=== PATIENT | male | born 1985 | race Two or more races ===

== ENCOUNTER 2025-04-17 16:26 | Emergency (ER) | payer OTHER ==
[~2025-04-17] VITALS: Ht 175.3 cm; Wt 94.3 kg
--- NOTE | 2025-04-17 17:07 | ED.PDOC ---
SOB-HPI HPI Comments 39 y.o male with PMHx of asthma, DM, and PE, presents to the ED for a chief complaint of SOB x 9 days associated with new onset of chest tightness. Patient was seen 4 days ago at [facility] care, where he was diagnosed with bronchitis and possible PNA, and prescribed a course of antibiotics and steroids. Patient has completed the 5 day course of steroids but is still taking the antibiotics in which he has 5 days remaining. While patient uses his albuterol inhaler and has mild relief, he is now using daily rather than PRN, still without relief, and is now experiencing tachycardia and palpitations. Last albuterol use was one hour prior to ED which he presents with HR around 106. Patient denies any fever, chills, nausea, vomiting, or sweats, and upon arrival, his oxygen saturation was 96% on room air. Chief Complaint: Shortness of Breath Time Seen by MD: 16:43 Reviewed notes: Nurses Notes, Medications, Allergies Information Source: Patient Mode of Arrival: Ambulatory Severity: Moderate Timing: Days (9), Weeks Duration: Since onset Context: At Rest PE Risk Factors: None History of: Asthma, DVT/PE Modifying Factors: Nothing Associated Signs and Symptoms: Calf Pain Quality: Tightness Radiation: No Radiation Location: Substernal Past Medical History PAST MEDICAL HISTORY: Asthma, DM, PE Surgical History: Cholecystectomy Family History Family History: Reviewed,noncontributory to illness Social History Smoker: Non-Smoker Alcohol: Denies ETOH Use Drugs: Denies Drug Use Lives In: Home Constitutional: denies: chills, diaphoresis, fatigue, fever, malaise, sweats, weakness, others EENTM: denies: blurred vision, double vision, ear bleeding, ear discharge, ear drainage, ear pain, ear ringing, eye pain, eye redness, hearing loss, mouth pain, mouth swelling, nasal discharge, nose bleeding, nose congestion, nose pain, photophobia, tearing, throat pain, throat swelling, voice changes, others Respiratory: reports: SOB at rest, shortness of breath, SOB with excertion; denies: cough, hemoptysis, orthopnea, stridor, wheezing, others Cardiovascular: reports: chest pain; denies: dizzy spells, diaphoresis, Dyspnea on exertion, edema, irregular heart beat, left arm pain, lightheadedness, palpitations, PND, syncope, others Gastrointestinal: denies: abdomen distended, abdominal pain, blood streaked bowels, constipated, diarrhea, dysphagia, difficulty swallowing, hematemesis, melena, nausea, poor appetite, poor fluid intake, rectal bleeding, rectal pain, vomiting, others Genitourinary: denies: burning, dysuria, flank pain, frequency, hematuria, incontinence, penile discharge, penile sore, pain, testicle pain, testicle swelling, urgency, others Neurological: denies: dizziness, fainting, headache, left sided numbness, left sided weakness, numbness, paresthesia, pre-existing deficit, right sided numbness, right sided weakness, seizure, speech problems, tingling, tremors, wea kness, others Musculoskeletal: denies: back pain, gout, joint pain, joint swelling, muscle pain, muscle stiffness, neck pain, others Integumetry: denies: bruises, change in color, change in hair/nails, dryness, l aceration, lesions, lumps, rash, wounds, others Allergic/Immunocompromised: denies: Difficulty Healing, Frequent Infections, Hives, Itching, others Hematologic/Lymphatic: denies: anemia, blood clots, easy bleeding, easy bruising, swollen glands, others Endocrine: denies: excessive hunger, excessive sweating, excessive thirst, excessive urination, flushing, intolerance to cold, intolerance to heat, unexplained weight gain, unexplained weight loss, others Psychiatric: denies: anxiety, bipolar disorder, depression, hopeless, panic disorder, schizophrenia, sleepless, suicidal, others All Other Systems: Reviewed and Negative Physical Exam General Appearance: No Apparent Distress HEENT: Other (Pupils and face symmetric. Moist mucous membranes.) Neck: Full Range of Motion, Normal Inspection Respiratory: Decreased Breath Sounds, No Accessory Muscle Use, Respiratory Distress (Mild tachypnea) Cardiovascular: No Edema, No JVD, Tachycardia Breast Exam: Deferred Gastrointestinal: Non Tender, Soft Genitalia: Deferred Pelvic: Deferred Rectal: Deferred Extremities: No calf tenderness, Normal inspection, Normal range of motion, Non-tender, No pedal edema Neurologic: Alert (Oriented x4), Normal Affect, Normal Mood, Other (Ambulatory) Cerebellar Function: NOT DONE Reflexes: NOT DONE Skin: Dry, Normal Color, Warm Lymphatic: NOT DONE EKG EKG : Comments Sinus tach, rate 108, normal intervals, normal axis, normal QRS, nonspecific T change Was a procedure done? Was a procedure done?: No Differential Dx Differential Diagnosis: Anxiety, Asthma, Bronchitis, CHF, COPD, Dysrhythmia, Hyperventilation, Myocardial infarction, Panic Attack, Pneumonia, Pulmonary Embolism, Respiratory Distress, URI X-Ray, Labs, Meds, VS Vital Signs Date Time Temp Pulse Resp B/P (MAP) Pulse Ox O2 Delivery O2 Flow Rate FiO2 04/17/25 18:40 66 19 95 Room Air* 0 21 04/17/25 18:40 98.2 66 19 144/84 (104) 95 98.2 04/17/25 16:42 108 04/17/25 16:29 98.6 117 20 151/94 96 98.6 Lab Test 04/17/25 19:02 04/17/25 18:45 04/17/25 18:18 04/17/25 18:00 Range/Units Lactic Acid Level 2.6 *H 0.4-2.0 mmol/L Urine Color Yellow Yellow Urine Clarity Clear Clear Urine pH 6.0 5.0-9.0 Urine Specific [place] 1.037 H 1.001-1.035 Urine Protein Negative Negative Urine Ketones 1+ H Negative Urine Blood 1+ H Negative /uL Urine Nitrite Negative Negative Urine Bilirubin Negative Negative Urine Urobilinogen Normal Negative mg/dL Urine Leukocyte Esterase Negative Negative /uL Urine RBC 18 0 - 3 /hpf Urine Microscopic WBC 1 0-3 /HPF Urine Squamous Epithelial Cells Few <5 /hpf Urine Bacteria None seen None Seen /hpf Urine Mucus Few None Seen Urine Glucose 4+ H Normal mg/dL Troponin I High Sensitivity 4 </=54 ng/L Influenza Type A Antigen Negative Negative Influenza Type B Antigen Negative Negative SARS-CoV-2 Antigen (Rapid) Negative NEGATIVE Test 04/17/25 17:04 04/17/25 16:49 Range/Units White Blood Count 10.5 4.4-10.8 10^3/uL Red Blood Count 5.90 4.5-5.90 10^6/uL Hemoglobin 18.7 H 13.5-17.5 g/dL Hematocrit 54.8 H 41.0-53.0 % Mean Corpuscular Volume 92.9 80.0-100.0 fL Mean Corpuscular Hemoglobin 31.8 28.0-32.0 pg Mean Corpuscular Hemoglobin Concent 34.2 32.0-36.0 g/dL Red Cell Distribution Width 13.6 11.8-14.3 % Platelet Count 346 140-450 10^3/uL Mean Platelet Volume 8.1 6.9-10.8 fL Neutrophils (%) (Auto) 83.6 H 37.0-80.0 % Lymphocytes (%) (Auto) 8.9 L 10.0-50.0 % Monocytes (%) (Auto) 7.3 0.0-12.0 % Eosinophils (%) (Auto) 0.1 0.0-7.0 % Basophils (%) (Auto) 0.1 0.0-2.0 % Neutrophils # (Auto) 8.8 H 1.6-8.6 10 ^3/uL Lymphocytes # (Auto) 0.9 0.4-5.4 10 ^3/uL Monocytes # (Auto) 0.8 0-1.3 10 ^3/uL Eosinophils # (Auto) 0 0-0.8 10 ^3/uL Basophils # (Auto) 0 0-0.2 10 ^3/uL Nucleated Red Blood Cells 0.3 % D-Dimer, Quantitative < 0.19 0.0-0.49 mg/L FEU Sodium Level 137 136-145 mmol/L Potassium Level 4.2 3.5-5.1 mmol/L Chloride Level 102 98-107 mmol/L Carbon Dioxide Level 24 20-31 mmol/L Anion Gap 11 5-15 Blood Urea Nitrogen 18 9-23 mg/dL Creatinine 0.94 0.700-1.30 mg/dL Glomerular Filtration Rate Calc 104 >90 mL/min BUN/Creatinine Ratio 19.1 10.0-20.0 Serum Glucose 238 H 74-106 mg/dL Calcium Level 9.5 8.7-10.4 mg/dL Troponin I High Sensitivity 4 </=54 ng/L B-Type Natriuretic Peptide 23.17 0-100 pg/mL Lactic Acid Level 3.4 *H 0.4-2.0 mmol/L Current Medications Medications (Trade) Dose Ordered Sig/Blake Route Start Time Stop Time Status Last Admin Methylprednisolone Sodium Succinate (Solu Medrol) 125 mg ONCE ONCE IV 04/17/25 17:00 04/17/25 17:01 DC 8/22/25 18:43 PROCEDURE(s): CXRP - CHEST PORTABLE REASON: sob ORDER NUMBER(s): [id number], ACCESSION NUMBER(s): [id number] CHEST RADIOGRAPH Indication: sob Technique: Single frontal view of the chest was obtained COMPARISON: None FINDINGS: Lines and Tubes: None Lungs: Clear Pleura: No effusion. No pneumothorax. Cardiomediastinal contours: Unremarkable Bones: Unremarkable IMPRESSION: 1. No acute disease. X-Ray, Labs, Meds, VS Comment 39 y.o male with PMHx of asthma, DM, and PE, presents to the ED for a chief complaint of SOB x 9 days associated with new onset of chest tightness despite being prescribed cefuroxime and oral steroids 4 days ago and using his inhaler regularly. Vitals remarkable for heart rate 115, BP 151/94 Exam remarkable for tachycardia and diminished breath sounds with mild tachypnea Rhythm strip independently interpreted by me: Sinus tach, rate 108, no ectopy. Chest x-ray IMPRESSION: 1. No acute disease. CBC unremarkable, basic metabolic panel remarkable for glucose 238. BNP, 2 serial troponins and D-dimer unremarkable. UA positive for blood and ketones, but not consistent with infection. Patient treated with the following in the ED: 2 L 0.9 normal saline IV bolus, Solu-Medrol 125 mg IV, Levaquin 500 mg IV On re-evaluation, patient is saturating 96% on room air and he is not in respiratory distress. He states he feels better and is comfortable being discharged home. Patient appears stable for discharge with close outpatient follow-up with his primary doctor. Rx Levaquin. Continue other current medications as directed. Time of 1ST Reevaluation: 17:30 Reevaluation 1ST: Unchanged Patient Education/Counseling: Diagnosis, Treatment, Prognosis Family Education/Counseling: No Family Present SEPSIS Sepsis Screen Date sepsis recognized/suspect: Apr 17, 2025 Time Sepsis recognized/suspect: 1632 Recent Procedure: No On Antibiotic Therapy: Yes (CURRENTLY ON DAY 5 OF ABX TREATMENT CEFUROXIME) Respiratory Rate >20: No Heart Rate >90: Yes (117) Temp<36 C (96.8 F) or >38.3 C: No SBP <90 or MAP <65 mmHG: No New Acute Mental Status Change: No Is the patient on CPAP, BIPAP,: No SEPSIS EXCLUSION NOTE: Sepsis Exclusion Note: Patient presents with SIRS criteria, but the SIRS response is attributed to [recent beta agonist administration ], not sepsis. Sepsis bundle is not initiated at this time, due to this reason. Further management will focus on the treatment of the above condition (s). Physician Orders Chest Portable (04/17/25 16:41) Electrocardigram (04/17/25 16:41) Blood Culture (04/17/25 16:41) Electrocardigram (04/17/25 17:41) Electrocardigram (04/17/25 19:41) Sodium Chloride 0.9% (04/17/25 20:30) Levofloxacin 500mg (Levaquin 500mg/ 100m (04/17/25 20:30) Vital Signs Date Time Temp Pulse Resp B/P (MAP) Pulse Ox O2 Delivery O2 Flow Rate FiO2 04/17/25 18:40 66 19 95 Room Air* 0 21 04/17/25 18:40 98.2 66 19 144/84 (104) 95 98.2 04/17/25 16:42 108 04/17/25 16:29 98.6 117 20 151/94 96 98.6 Laboratory Tests Test 04/17/25 16:49 04/17/25 17:04 04/17/25 19:02 Lactic Acid Level 3.4 mmol/L (0.4-2.0) *H 2.6 mmol/L (0.4-2.0) *H White Blood Count 10.5 10^3/uL (4.4-10.8) Medications Medications Dose Ordered Sig/Blake Route Start Time Stop Time Status Last Admin Dose Admin Methylprednisolone Sodium Succinate 125 mg ONCE ONCE IV 04/17/25 17:00 04/17/25 17:01 DC 04/17/25 18:43 Departure 1 Departure Time of Disposition: 20:30 Impression: Primary Impression: Acute bronchitis Additional Impression: Asthma exacerbation Disposition: HOME / SELF CARE / HOMELESS Condition: Stable Additional Instructions: Your blood tests, including screening tests for heart attack, heart failure and blood clots, were unremarkable. Your chest x-ray was normal. I have enclosed the report below. I have prescribed an additional antibiotic. Continue current medications as directed. Return to ER for persistent or worsening symptoms. [address] [address] Ph: [phone] DIAGNOSTIC IMAGING Diagnostic Imaging Report : [id number] Signed PATIENT: WENDY PARSONS ACCT: [id number] UNIT: [id number] : 1985 LOC: ER ROOM / BED: / AGE / SEX: 39 / M ADM STATUS: REG ER SERVICE 1641 ORDERING PHYSICIAN: KATHERIN SUAREZ MD PROCEDURE(s): CXRP - CHEST PORTABLE REASON: sob ORDER NUMBER(s): [id number], ACCESSION NUMBER(s): [id number] CHEST RADIOGRAPH Indication: sob Technique: Single frontal view of the chest was obtained COMPARISON: None FINDINGS: Lines and Tubes: None Lungs: Clear Pleura: No effusion. No pneumothorax. Cardiomediastinal contours: Unremarkable Bones: Unremarkable IMPRESSION: 1. No acute disease. e-Prescriptions Levofloxacin Hemihydrate (LEVAQUIN 500 MG) 500 Mg Tab 1 TAB PO DAILY, #7 TAB Prov: KATHERIN SUAREZ MD 04/17/25 Discharged With: Relative Critical Care Note Critical Care Time?: No Stability Stability form required: No Heart Score Heart Score: Heart Score Response (Comments) Value History Slightly Suspicious 0 EKG Repolarization Disturb 1 Age <45 0 Risk Factors 1 or 2 risk factors 1 Troponin Normal limit 0 Total 2 I personally scribed for KATHERIN SUAREZ MD ([email or web address]) on 04/17/25 at 17:07. Electronically submitted by Jud Mccain ([facility]). KATHERIN SUAREZ MD Apr 17, 2025 17:07
--- NOTE | 2025-04-17 17:28 | DVH ---
CHEST RADIOGRAPH Indication: sob Technique: Single frontal view of the chest was obtained COMPARISON: None FINDINGS: Lines and Tubes: None Lungs: Clear Pleura: No effusion. No pneumothorax. Cardiomediastinal contours: Unremarkable Bones: Unremarkable IMPRESSION: 1. No acute disease.
[2025-04-17 17:32] LABS: Hematocrit 54.8 % (41.0-53.0); Hemoglobin 18.7 g/dL (13.5-17.5); Mean Corpuscular Hemoglobin 31.8 pg (28.0-32.0); Mean Corpuscular Volume 92.9 fL (80.0-100.0); Nucleated Red Blood Cells % 0.3 %
[2025-04-17 17:36] LABS: Chloride 102 mmol/L (98-107); Potassium 4.2 mmol/L (3.5-5.1); Sodium 137 mmol/L (136-145)
[2025-04-17 17:37] LABS: Anion Gap 11 (5-15); Calcium 9.5 mg/dL (8.7-10.4); Carbon Dioxide 24 mmol/L (20-31)
[2025-04-17 17:43] LABS: BUN/Creatinine Ratio 19.1 (10.0-20.0); Blood Urea Nitrogen 18 mg/dL (9-23)
[2025-04-17 17:50] LABS: Glucose 238 mg/dL (74-106)
[2025-04-17 18:00] LABS: Lactic Acid w/Reflex 3.4 mmol/L (0.4-2.0)
[2025-04-17 18:39] LABS: COVID19 ANTIGEN SOFIA FIA NEGATIVE (NEGATIVE)
[2025-04-17 18:40] VITALS: BP 144/84; PULSE 66; RESP 19; TEMP 98.2; O2SAT 95
[2025-04-17] MEDS: methylPREDNISolone SOD SUCC 125 MG/2 ML VL IV ONE (18:43)
[2025-04-17 19:18] LABS: Urine Protein, UAD Negative (Negative)
[2025-04-17] MEDS ORDERED: LEVO500T91 PO (20:48)
[2025-04-17] MEDS: SODIUM CHLORIDE 0.9% 2,000 ML IV ONE (21:47)
--- NOTE | 2025-04-20 08:22 | ECG ---
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
== END 2025-04-17 23:19 | disposition home or self-care (01) ==
LOC: ER 16:26
DX: J20.9 Acute bronchitis, unspecified (principal); J45.901 Unspecified asthma with (acute) exacerbation; E11.9 Type 2 diabetes mellitus without complications; I26.99 Other pulmonary embolism without acute cor pulmonale; Z90.49 Acquired absence of other specified parts of digestive tract; Z20.822 Contact with and (suspected) exposure to COVID-19
CPT/HCPCS: 36415; 71045; 80048; 81001; 83605; 83880; 84484; 85025; 85379; 87040; 87426; 87804; 93005; 96361; 96365; 96375; 99285; J1956; J2919; J7030